=== PATIENT | female | born 1995 | race Caucasian/White ===

== ENCOUNTER 2017-07-08 15:44 | Emergency (ER) | payer OTHER ==
[2017-07-08 15:56] VITALS: TEMP 97.7; O2SAT 98
[2017-07-08 17:04] LABS: HCG,QUALITATIVE URINE NEGATIVE (NEGATIVE)
[2017-07-08 17:08] LABS: URINE CLARITY Clear (Clear); URINE COLOR Straw (YELLOW)
[2017-07-08 17:09] LABS: SQUAMOUS EPITHIAL 3 /hpf (0-5); URINE BACTERIA RARE (<OCC); URINE BILIRUBIN NEGATIVE (NEGATIVE); URINE BLOOD NEGATIVE (NEGATIVE); URINE GLUCOSE (UA) NORMAL (Normal); URINE LEUKOCYTE ESTERASE 1+ Leu/uL (Negative); URINE PROTEIN NEGATIVE (NEGATIVE); URINE UROBILINOGEN NORMAL mg/dL (0.2-1.0)
--- NOTE | 2017-07-08 17:25 | C.PDOC ---
History Of Present Illness Patient presents to ED c/o episode of dizziness (room spinning around her) for approx 5 min, associated with nausea. She denies chest pain, palpitations, SOB , fever, abdominal pain, vomiting/diarrhea. She denies prior episodes of similar symptoms, h/o anemia or heavy menses. Patient admits to taking Plan B approx 1 week ago, is concerned symptoms may be due to medication. Time Seen by Provider: 07/08/17 16:20 Chief Complaint (Nursing): Dizziness/Lightheaded History Per: Patient History/Exam Limitations: no limitations Onset/Duration Of Symptoms: Mins (5) Current Symptoms Are (Timing): Better Activity At Onset Of Symptoms: Standing Associated Symptoms Preceding Syncopal Episode: Vertigo Fall Associated With With Symptoms: No Severity: Mild Past Medical History Reviewed: Historical Data, Nursing Documentation, Vital Signs Vital Signs: Last Vital Signs Temp 97.7 F 07/08/17 15:53 Pulse 82 07/08/17 17:38 Resp 20 07/08/17 17:38 BP 111/74 07/08/17 17:38 Pulse Ox 98 07/08/17 17:44 - Medical History PMH: No Chronic Diseases Family History: States: No Known Family Hx - Social History Hx Alcohol Use: No Hx Substance Use: No - Immunization History Hx Tetanus Toxoid Vaccination: No Hx Influenza Vaccination: No Hx Pneumococcal Vaccination: No Review Of Systems Except As Marked, All Systems Reviewed And Found Negative. Constitutional: Negative for: Fever, Chills Cardiovascular: Negative for: Chest Pain, Palpitations Respiratory: Negative for: Shortness of Breath Gastrointestinal: Positive for: Nausea. Negative for: Vomiting, Abdominal Pain , Diarrhea Genitourinary: Negative for: Dysuria, Hematuria, Vaginal Discharge, Vaginal Bleeding Skin: Negative for: Rash Physical Exam - Physical Exam Appears: Well, Non-toxic, No Acute Distress Skin: Normal Color, Warm, Dry Head: Atraumatic, Normacephalic Eye(s): bilateral: Normal Inspection (no nystagmus ), PERRL, EOMI Ear(s): Left: Other (cerumen ), Right: Normal Oral Mucosa: Moist Cardiovascular: Rhythm Regular Respiratory: Normal Breath Sounds, No Rales, No Rhonchi, No Wheezing Gastrointestinal/Abdominal: Normal Exam, Bowel Sounds, Soft, No Tenderness Extremity: Normal ROM, No Pedal Edema, No Calf Tenderness Neurological/Psych: Oriented x3, Normal Speech, Normal Cognition, Normal Cranial Nerves, No Cerebellar Signs, Normal Motor, Normal Sensation, Normal Reflexes, No Dysarthria Gait: Steady ED Course And Treatment ECG: Interpreted By Me, Viewed By Me (sinus rhythm 68 bpm, short TX interval, no delta waves, normal axis, no acute ST/T wave changes) ECG Interpretation: No Acute Changes O2 Sat by Pulse Oximetry: 98 (RA) Pulse Ox Interpretation: Normal Progress Note: Patient refusing blood work. Accucheck, EKG and UA, Upreg ordered. Reevaluation Time: 17:30 Reassessment Condition: Improved (On reassessment, patient is resting comfortably, asymptomatic, in no distress. Upreg (-), UA (+) for mild UTI. Rxs for ciprofloxacin and meclizine given, and patient instructed to follow up with PMD/clinic in 1-2 days. Patient also made aware of short TX interval on EKG, and instructed to follow up with cardiology within 1 week. She understands she should return to ED if symptoms worsen.) Disposition Counseled Patient/Family Regarding: Studies Performed, Diagnosis, Need For Followup, Rx Given - Disposition Referrals: Jose Escamilla MD [Staff Provider] - Elen Stewart MD [Staff Provider] - Denice Puente MD [Staff Provider] - Disposition: HOME/ ROUTINE Disposition Time: 17:30 Condition: STABLE Additional Instructions: FOLLOW UP WITH CARDIOLOGY WITHIN 1 WEEK USE MEDICATIONS DIRECTED RETURN TO ER IF SYMPTOMS WORSEN Prescriptions: Ciprofloxacin [Cipro] 1 tab PO BID #14 tab Meclizine [Meclizine*] 25 mg PO Q6 #15 tab Instructions: Vertigo (a Type of Dizziness), Urinary Tract Infections in Adults Forms: enStage (Citizen Of [place]) Print Language: SLOVAK - Clinical Impression Clinical Impression: Vertigo, UTI (urinary tract infection), Shortened TX interval
[2017-07-08 17:38] VITALS: BP 111/74; PULSE 82; RESP 20
== END 2017-07-08 17:48 | disposition home or self-care (01) ==
LOC: C.ER 15:44
DX: R42 Dizziness and giddiness (principal); N39.0 Urinary tract infection, site not specified; R94.31 Abnormal electrocardiogram [ECG] [EKG]